=== PATIENT | female | born 1930 | race African-American/Black ===

== ENCOUNTER 2017-10-05 19:20 | Inpatient (IN) | payer MEDICARE, OTHER ==
[~2017-10-05] VITALS: Ht 157.5 cm; Wt 50.3 kg
[~2017-10-05 19:20] MED LIST: CARVEDILOL3.125 MG PO; CLOPIDOGREL75 MG PO; COQ-10100 MG PO; FERROUS SULFAT325 MG; FOLIC ACID1 MG PO; LISINOPRIL10 MG PO; LYRICA50 MG PO; MECLIZINE HCL25 MG PO; MINOCYCLINE HCL50 MG PO; PANTOPRAZOLE SO40 MG PO; PEPCID AC20 MG PO; SIMVASTATIN20 MG PO; SUCRALFATE1 GM PO
[2017-10-05] MEDS ORDERED: PANTOPRAZOLE 40 MG 10ML VIAL IV STA (19:33)
[2017-10-05] MEDS ORDERED: ONDANSETRON HCL INJ 2 MG/ML VIAL IV STA (19:33)
[2017-10-05] MEDS ORDERED: DIATRIZOATE MEGL/DIATRIZOA SOD 30 ML BTL PO ONE (19:50)
[2017-10-05 20:17] LABS: BASOPHILS % 0.3 % (0.0-1.0); HEMOGLOBIN 11.2 g/dL (12.0-16.0); LYMPHOCYTES % 26.6 % (18.0-39.1); MEAN CORPUSCULAR HEMOGLOBIN 24.1 pg (28-32); MEAN CORPUSCULAR HGB CONC 32.9 g/dL (31-35); MEAN CORPUSCULAR VOLUME 73.1 fL (81-99); MONOCYTES # (AUTO) 0.4 (0.2-0.8); MONOCYTES % 10.6 % (4.4-11.3); NEUTROPHILS # (AUTO) 2.3 (2.1-6.9); NEUTROPHILS % 62.2 % (38.7-80.0); PLATELET COUNT 137 x10e3/uL (140-360); RED BLOOD COUNT 4.65 x10e6/uL (3.6-5.1); RED CELL DISTRIBUTION WIDTH 15.4 % (11.7-14.4)
[2017-10-05 20:38] LABS: ALBUMIN 3.3 g/dL (3.5-5.0); ALBUMIN/GLOBULIN RATIO 0.8 (0.8-2.0); ANION GAP 12.6 mmol/L (8-16); CALCIUM 8.3 mg/dL (8.4-10.2); CREATININE, SERUM 1.08 mg/dL (0.57-1.11); POTASSIUM 3.6 mmol/L (3.5-5.1)
[2017-10-05 20:45] LABS: CREATINE KINASE MB 0.8 ng/mL (0.00-5.00); TROPONIN I 0.067 ng/mL (0-0.300)
--- NOTE | 2017-10-05 21:45 | Diagnostic Imaging Report ---
EXAM: CT ABDOMEN AND PELVIS with IV CONTRAST DATE: 10/05/2017 7:33 PM Time stamp on Exam: 2111 hours INDICATION: Abdominal pain, loss of appetite COMPARISON: None TECHNIQUE: The abdomen and pelvis were scanned using a multidetector helical scanner. Coronal and sagittal reformations were obtained. Routine protocol performed. IV Contrast: 100 cc Isovue 37 Oral Contrast: Gastrografin CTDIvol has been reviewed. It is below the limits set by the Radiation Protocol Committee (RPC). FINDINGS: LOWER THORAX: No consolidations LIVER: No masses BILIARY: The gallbladder is contracted. No ductal dilation. SPLEEN: No masses PANCREAS: No masses ADRENALS: No nodules KIDNEYS: Symmetric perfusion. No enhancing masses. No hydronephrosis. GI TRACT: No distention, wall thickening or evidence of obstruction. Normal appendix. Liquid filled colon. Scattered colonic diverticula. VESSELS: No acute finding PERITONEUM/RETROPERITONEUM: No free air or fluid LYMPH NODES: No lymphadenopathy REPRODUCTIVE ORGANS: Unremarkable BLADDER: Unremarkable SOFT TISSUES: Unremarkable BONES: No suspicious bone lesions. IMPRESSION: Liquid filled colon indicating diarrhea. No bowel obstruction or diverticulitis. Normal appendix. Signed by: Dr. Sofia Ivan M.D. on 10/05/2017 9:41 PM
[2017-10-05] MEDS ORDERED: SODIUM CHLORIDE 0.9% 50ML 50 ML ONE (22:24)
[2017-10-05] MEDS ORDERED: IOPAMIDOL 370 MG/ML 200 ML INFUS..BTL INJ ONE (22:24)
[2017-10-05 23:55] LABS: BILIRUBIN,URINE NEGATIVE (NEGATIVE); KETONES,URINE NEGATIVE (NEGATIVE); LEUKOCYTE ESTERASE ,URINE TRACE (NEGATIVE); NITRITE,URINE NEGATIVE (NEGATIVE); PROTEIN,URINE DIPSTICK NEGATIVE (NEGATIVE); URINE UROBILINOGEN 0.2 mg/dL (0.2 - 1)
[2017-10-05 23:59] LABS: CLARITY,URINE SL CLOUDY (CLEAR); COLOR,URINE YELLOW (YELLOW)
[2017-10-06 00:07] LABS: BACTERIA,URINE MANY /HPF; EPITHELIAL CELLS,URINE RARE /LPF
[2017-10-06] MEDS ORDERED: ONDANSETRON HCL INJ 2 MG/ML VIAL IV PRN (00:30)
[2017-10-06] MEDS ORDERED: CEFTRIAXONE SOD 1 GM VIAL IV SCH (00:30)
[2017-10-06] MEDS ORDERED: DEXTROSE 50% SYRINGE 50 ML IV PRN (00:30)
[2017-10-06] MEDS ORDERED: CEFTRIAXONE SOD 1 GM/NS 50 ML 50 ML IV SCH (01:00)
[2017-10-06] MEDS: SODIUM CHLORIDE 0.9% 1000ML 1,000 ML IV SCH ×2 (01:53→21:29)
[2017-10-06] MEDS ORDERED: CEFTRIAXONE SOD 1 GM VIAL ONE (02:07)
[2017-10-06] MEDS ORDERED: LASIX20 MG PO (04:15)
[2017-10-06] MEDS ORDERED: ULTRAM50 MG PO (04:15)
[2017-10-06] MEDS ORDERED: PANTOPRAZOLE SO40 MG PO (04:15)
[2017-10-06] MEDS ORDERED: COLACE100 MG PO (04:15)
[2017-10-06] MEDS: INSULIN REGULAR, HUMAN 100 UNIT/1 ML 3ML VIAL SQ SCH ×4 (09:08→21:00)
[2017-10-06 09:18] VITALS: BP 111/62
[2017-10-06] MEDS ORDERED: FAMOTIDINE 20 MG TAB PO PRN (10:15)
[2017-10-06] MEDS ORDERED: ALBUTEROL SULFATE HFA 8GM INHALATION AEROSOL INH PRN (10:15)
--- NOTE | 2017-10-06 10:53 | History and Physical ---
She is an 87-year-old female patient of mine that presented to the emergency room with the complaint of severe weakness. HISTORY OF PRESENT ILLNESS: Ms. Shelly Mullins is an 87-year-old female patient with a previous history of ischemic cardiomyopathy, CHF, CAD, AICD placement, gastritis, diabetes mellitus, borderline hypertension, hyperlipidemia, gastritis, and anemia. Presented to the emergency room. Wednesday the patient was cleaning her grandson's room, and after that the patient started having severe weakness, abdominal upset, diarrhea. The patient started having coughing and feeling profoundly weak, and having a decreased appetite. Patient denies any fever. Patient had not checked her temperature. Patient was very weak. Patient's daughter had found the patient was about to fall and trying to hold on to the sink. Patient complains of weakness. REVIEW OF SYSTEMS: As per history of present illness. PAST MEDICAL HISTORY: Hypertension, diabetes mellitus, ischemic cardiomyopathy, CHF, COPD, hyperlipidemia, gastritis, and anemia. PAST SURGICAL HISTORY: Patient has a pacemaker, AICD placed, and angioplasty. ALLERGIES: PENICILLIN, ASPIRIN AND REGLAN. SOCIAL HISTORY: Denies smoking. Denies using alcohol. FAMILY HISTORY: Hypertension, diabetes mellitus, coronary artery disease. PHYSICAL EXAMINATION GENERAL: She is an elderly female patient lying in bed not in any acute distress. Looks tired. VITALS: Temperature 99, pulse rate 60, blood pressure 110/70, respirations 20. Temperature in arrival in the ER was 99.5. HEENT: Normocephalic and atraumatic. No JVD. LUNGS: Bilateral equal fair air entry. Bilateral rhonchi present. HEART: S1 and S2 regular. Systolic murmur present. ABDOMEN: Soft. Bowel sounds are present. NEURO: No focal neurological deficit. ADMITTING IMPRESSION/DIAGNOSES 1. Acute exacerbation of chronic obstructive pulmonary disease. 2. Bronchitis. 3. Urinary tract infection. 4. Gastritis. 5. Abdominal pain. 6. Profound weakness. 7. Congestive heart failure. 8. Coronary artery disease. 9. Chronic obstructive pulmonary disease. 10. Hypertension. 11. Diabetes mellitus. The patient will be admitted with the above diagnoses. Will treat the patient with IV antibiotics. Give her neb treatments. Will obtain chest x-ray. Give the patient IV antibiotics. Job#: [id number] RI
[2017-10-06] MEDS: ALBUTEROL/IPRATROPIUM 3 ML NEB NEB PRN ×2 (11:52→20:30)
[2017-10-06 12:21] VITALS: BP 126/70
[2017-10-06 12:25] LABS: CREATINE KINASE MB 1.4 ng/mL (0.00-5.00); TROPONIN I 0.059 ng/mL (0-0.300)
[2017-10-06] MEDS: CLOPIDOGREL BISULFATE 75 MG TAB PO SCH (13:10)
[2017-10-06] MEDS: TRAMADOL HCL 50 MG TAB PO SCH ×2 (13:10→17:04)
[2017-10-06 14:50] VITALS: BP 138/70
[2017-10-06 16:16] VITALS: BP 138/70
[2017-10-06] MEDS: PREGABALIN 50 MG CAP PO SCH (17:00)
[2017-10-06] MEDS: SUCRALFATE 1 GM TAB PO SCH (17:03)
[2017-10-06] MEDS: CARVEDILOL 3.125 MG TAB PO SCH (17:03)
[2017-10-06 18:49] LABS: CREATINE KINASE MB 1.8 ng/mL (0.00-5.00); TROPONIN I 0.051 ng/mL (0-0.300)
[2017-10-06 19:52] VITALS: BP 121/72
[2017-10-06] MEDS ORDERED: SIMVASTATIN 20 MG TAB PO SCH (21:00)
[2017-10-06] MEDS ORDERED: SIMVASTATIN 40 MG TAB PO SCH (21:00)
[2017-10-07] VITALS (7 sets, daily range): BP systolic 106–142; BP diastolic 61–76
[2017-10-07] MEDS: CEFTRIAXONE SOD 1 GM VIAL IV SCH (00:29)
[2017-10-07 06:09] LABS: BASOPHILS % 0.5 % (0.0-1.0); HEMOGLOBIN 9.5 g/dL (12.0-16.0); LYMPHOCYTES # (AUTO) 1.1 (1.0-3.2); LYMPHOCYTES % 51.2 % (18.0-39.1); MEAN CORPUSCULAR HEMOGLOBIN 23.9 pg (28-32); MEAN CORPUSCULAR HGB CONC 32.8 g/dL (31-35); MONOCYTES # (AUTO) 0.2 (0.2-0.8); MONOCYTES % 11.2 % (4.4-11.3); NEUTROPHILS # (AUTO) 0.7 (2.1-6.9); NEUTROPHILS % 35.6 % (38.7-80.0); PLATELET COUNT 109 x10e3/uL (140-360); RED BLOOD COUNT 3.97 x10e6/uL (3.6-5.1); RED CELL DISTRIBUTION WIDTH 15.1 % (11.7-14.4)
[2017-10-07 06:32] LABS: ALANINE AMINOTRANSFERASE 17 IU/L (0-55); ALBUMIN 2.8 g/dL (3.5-5.0); ALBUMIN/GLOBULIN RATIO 0.9 (0.8-2.0); ALKALINE PHOSPHATASE 52 IU/L (40-150); ANION GAP 10.5 mmol/L (8-16); BLOOD UREA NITROGEN 8 mg/dL (7-26); BUN/CREATININE RATIO 10 (6-25); CALCIUM 7.8 mg/dL (8.4-10.2); CARBON DIOXIDE 24 mmol/L (22-29); CHLORIDE 107 mmol/L (98-107); CREATININE, SERUM 0.78 mg/dL (0.57-1.11); EST GLOMERULAR FILTRATION RATE > 60 ML/MIN (60-); GLUCOSE 80 mg/dL (74-118); POTASSIUM 3.5 mmol/L (3.5-5.1); SODIUM 138 mmol/L (136-145)
[2017-10-07] MEDS ORDERED: ACETAMINOPHEN 325 MG TAB PO PRN (06:45)
[2017-10-07] MEDS: INSULIN REGULAR, HUMAN 100 UNIT/1 ML 3ML VIAL SQ SCH ×4 (07:30→21:00)
[2017-10-07] MEDS: ALBUTEROL/IPRATROPIUM 3 ML NEB NEB PRN ×2 (07:58→20:50)
[2017-10-07 08:16] LABS: LYMPHOCYTES % (MANUAL) 52 % (19-48); MONOCYTES % (MANUAL) 13 % (3.4-9.0); NEUTROPHILS % (MANUAL) 35 % (40-74)
[2017-10-07 08:17] LABS: ANISOCYTOSIS MODERATE; HYPOCHROMASIA SLIGHT; PLATELET ESTIMATE SLIGHTLY DECREASED; PLATELET MORPHOLOGY COMMENT FEW LARGE; POIKILOCYTOSIS MODERATE; RBC MORPHOLOGY COMMENT ABNORMAL
[2017-10-07] MEDS: TRAMADOL HCL 50 MG TAB PO SCH ×3 (09:19→16:29)
[2017-10-07] MEDS: DOCUSATE SODIUM 100 MG CAP PO SCH (09:19)
[2017-10-07] MEDS: SUCRALFATE 1 GM TAB PO SCH ×2 (09:19→16:28)
[2017-10-07] MEDS: FOLIC ACID 1 MG TAB PO SCH (09:20)
[2017-10-07] MEDS: CLOPIDOGREL BISULFATE 75 MG TAB PO SCH (09:20)
[2017-10-07] MEDS: CARVEDILOL 3.125 MG TAB PO SCH ×2 (09:20→16:29)
[2017-10-07] MEDS: FUROSEMIDE 20 MG TAB PO SCH (09:20)
[2017-10-07] MEDS: FERROUS SULFATE 325 MG TAB PO SCH (09:20)
[2017-10-07] MEDS: PREGABALIN 50 MG CAP PO SCH ×2 (09:20→16:29)
[2017-10-07] MEDS: LISINOPRIL 10 MG TAB PO SCH (09:21)
[2017-10-07] MEDS: PANTOPRAZOLE SOD 40 MG TABEC PO SCH (09:21)
--- NOTE | 2017-10-07 11:23 | Diagnostic Imaging Report ---
PROCEDURE:CHEST 2 VIEWS TECHNIQUE:PA and lateral chest INDICATION:Cough; flu COMPARISON:[facility], , CHEST 2 VIEWS, 06/14/2015, 8:55. FINDINGS: Lungs are clear and symmetrically inflated. No pleural effusions. Mild cardiomegaly. Single-lead AICD over left hemithorax; lead intact. Normal central vasculature. Intact skeleton. CONCLUSION: No acute abnormality. Progressive cardiomegaly relative to May 2015. Dictated by: Teddy Canada M.D. on 10/07/2017 at 11:32 Electronically approved by: Teddy Canada M.D. on 10/07/2017 at 11:32
[2017-10-07] MEDS: OSELTAMIVIR PHOSPHATE 75 MG CAP PO SCH (16:29)
[2017-10-07] MEDS: SODIUM CHLORIDE 0.9% 1000ML 1,000 ML IV SCH (19:18)
[2017-10-08 00:35] VITALS: BP 105/69
[2017-10-08] MEDS: CEFTRIAXONE SOD 1 GM VIAL IV SCH (01:10)
[2017-10-08 04:00] VITALS: BP 122/73
[2017-10-08] MEDS: INSULIN REGULAR, HUMAN 100 UNIT/1 ML 3ML VIAL SQ SCH ×4 (07:30→21:00)
[2017-10-08] MEDS: TRAMADOL HCL 50 MG TAB PO SCH ×3 (08:00→17:00)
[2017-10-08] MEDS: DOCUSATE SODIUM 100 MG CAP PO SCH (09:00)
[2017-10-08] MEDS: SUCRALFATE 1 GM TAB PO SCH ×2 (09:42→17:20)
[2017-10-08] MEDS: CARVEDILOL 3.125 MG TAB PO SCH ×2 (09:43→17:21)
[2017-10-08] MEDS: FERROUS SULFATE 325 MG TAB PO SCH (09:44)
[2017-10-08] MEDS: FUROSEMIDE 20 MG TAB PO SCH (09:44)
[2017-10-08] MEDS: FOLIC ACID 1 MG TAB PO SCH (09:44)
[2017-10-08] MEDS: PREGABALIN 50 MG CAP PO SCH ×2 (09:44→17:21)
[2017-10-08] MEDS: CLOPIDOGREL BISULFATE 75 MG TAB PO SCH (09:45)
[2017-10-08] MEDS: OSELTAMIVIR PHOSPHATE 75 MG CAP PO SCH ×2 (09:45→17:21)
[2017-10-08] MEDS: LISINOPRIL 10 MG TAB PO SCH (09:45)
[2017-10-08] MEDS: PANTOPRAZOLE SOD 40 MG TABEC PO SCH (09:45)
[2017-10-08 12:00] VITALS: BP 124/65
[2017-10-08] MEDS: ALBUTEROL/IPRATROPIUM 3 ML NEB NEB PRN ×2 (15:34→20:32)
[2017-10-08] MEDS: SODIUM CHLORIDE 0.9% 1000ML 1,000 ML IV SCH (15:44)
[2017-10-08 16:00] VITALS: BP 124/58
--- NOTE | 2017-10-08 18:57 | Consultation ---
DATE OF CONSULTATION: October 08, 2017 REFERRING PHYSICIAN: Dr. Clifford Hollingsworth. REASON FOR CONSULTATION: Anemia. HISTORY OF PRESENT ILLNESS: Ms. Mullins is a pleasant, 87-year-old woman who came in with the flu. She tested positive for influenza type A. She was having nausea, diarrhea and indigestion. She said she felt generally extremely weak, had a low appetite and felt very ill. . She was brought in and, as mentioned, found to be influenza positive. CAT scan was positive for liquid stool in the colon concerning for diarrheal state. The diarrhea has now resolved. She denies any abdominal pain, nausea, vomiting, dysphagia, odynophagia or overt bleeding. She reports she has a history of chronic anemia. She says often times her white count is also low. It seems like her baseline hemoglobin is more like 11-12 from what is in the computer with the most recent ones being in the 11 range. It has dropped down to 9.5. Occult blood was ordered, but pending. She had a low MCV at 73 which is also being evaluated with iron studies which have been ordered but not drawn. She is notable for platelet count being low as well, concerning for overall pancytopenia. She reports that she may have some sort of blood problem given her history of chronic anemia and leukopenia. Imaging is not concerning for cirrhosis. She reports she had an EGD and colonoscopy within the past 5 years. She reports a history of polyps. PAST MEDICAL HISTORY: 1. Ischemic cardiomyopathy. 2. CHF. 3. CAD. 4. AICD. 5. Gastritis. 6. Diabetes. 7. Hypertension. 8. Dyslipidemia. 9. Chronic anemia. 10. COPD. MEDICATION ALLERGIES: REVIEWED, PLEASE SEE MAR AND MEDICATION RECONCILIATION FORM. SOCIAL HISTORY: No tobacco, no alcohol no illicit substances. FAMILY HISTORY: Reviewed and positive for anemia, hypertension, diabetes and coronary artery disease. REVIEW OF SYSTEMS: Ten systems reviewed positive for that mentioned in history of present illness, otherwise unremarkable. PHYSICAL EXAMINATION: GENERAL: She is thin, elderly and in no acute distress. HEENT: Pupils are equal, round and reactive to light. NECK: Supple. LUNGS: Clear. CARDIOVASCULAR: S1 and S2. ABDOMEN: Soft, nontender and nondistended. Normal bowel sounds. EXTREMITIES: No clubbing, cyanosis or edema. PSYCHIATRIC: Calm and cooperative. NEUROLOGIC: Nonfocal. HEME/ONC: No bruising or adenopathy. Electronic health records reviewed for laboratory and radiologic studies as well as history. ASSESSMENT: 1. Nausea, anorexia, diarrhea, likely related to acute influenza. 2. Multiple medical problems. 1. Pancytopenia with hemoglobin being microcytic and below her baseline: She has had no overt bleeding. RECOMMENDATIONS: For now I would monitor hemoglobin and hematocrit and follow up her iron studies and replace as needed. Given that it is pancytopenia, hematology consult could be considered. I would have her follow up as an outpatient once this is resolved for repeat endoscopy, both EGD and colonoscopy, particularly if she is found to be iron deficient. Thank you very much for asking me to see Ms. Mullins. Any questions or concerns, please do not hesitate to contact us. Will follow with you. Job#: [id number]
[2017-10-08 20:00] VITALS: BP 120/66
[2017-10-09] VITALS: BP 126/59
[2017-10-09] MEDS: CEFTRIAXONE SOD 1 GM VIAL IV SCH (01:00)
[2017-10-09 04:00] VITALS: BP 139/65
[2017-10-09 06:43] LABS: BASOPHILS % 0.5 % (0.0-1.0); EOSINOPHILS % 1.4 % (0.0-6.0); HEMATOCRIT 28.1 % (34.2-44.1); HEMOGLOBIN 9.1 g/dL (12.0-16.0); LYMPHOCYTES # (AUTO) 1.8 (1.0-3.2); LYMPHOCYTES % 80.2 % (18.0-39.1); MEAN CORPUSCULAR HEMOGLOBIN 23.8 pg (28-32); MEAN CORPUSCULAR HGB CONC 32.4 g/dL (31-35); MEAN CORPUSCULAR VOLUME 73.4 fL (81-99); MONOCYTES # (AUTO) 0.2 (0.2-0.8); MONOCYTES % 9.9 % (4.4-11.3); NEUTROPHILS # (AUTO) 0.2 (2.1-6.9); NEUTROPHILS % 7.5 % (38.7-80.0); PLATELET COUNT 86 x10e3/uL (140-360); RED BLOOD COUNT 3.83 x10e6/uL (3.6-5.1); RED CELL DISTRIBUTION WIDTH 14.9 % (11.7-14.4); RETICULOCYTE % 0.5 % (0.8-2.2)
[2017-10-09] MEDS: ALBUTEROL/IPRATROPIUM 3 ML NEB NEB PRN ×2 (06:50→15:32)
[2017-10-09 07:05] LABS: % IRON SATURATION 20 % (15-50); ALANINE AMINOTRANSFERASE 16 IU/L (0-55); ALBUMIN 2.8 g/dL (3.5-5.0); ALBUMIN/GLOBULIN RATIO 0.8 (0.8-2.0); ALKALINE PHOSPHATASE 50 IU/L (40-150); ANION GAP 10.3 mmol/L (8-16); BLOOD UREA NITROGEN 8 mg/dL (7-26); BUN/CREATININE RATIO 11 (6-25); CALCIUM 8.1 mg/dL (8.4-10.2); CARBON DIOXIDE 27 mmol/L (22-29); CHLORIDE 104 mmol/L (98-107); CREATININE, SERUM 0.74 mg/dL (0.57-1.11); EST GLOMERULAR FILTRATION RATE > 60 ML/MIN (60-); GLUCOSE 79 mg/dL (74-118); IRON 39 ug/dL (50-170); POTASSIUM 3.3 mmol/L (3.5-5.1); SODIUM 138 mmol/L (136-145); TOTAL IRON BINDING CAPACITY 195 ug/dL (261-478); TRANSFERRIN 139 mg/dL (180-382)
[2017-10-09] MEDS: INSULIN REGULAR, HUMAN 100 UNIT/1 ML 3ML VIAL SQ SCH ×4 (07:30→21:00)
[2017-10-09 08:00] VITALS: BP 129/68
[2017-10-09] MEDS: DOCUSATE SODIUM 100 MG CAP PO SCH (09:00)
[2017-10-09] MEDS: LISINOPRIL 10 MG TAB PO SCH (09:00)
[2017-10-09] MEDS: SUCRALFATE 1 GM TAB PO SCH ×2 (09:18→17:00)
[2017-10-09] MEDS: CARVEDILOL 3.125 MG TAB PO SCH ×2 (09:18→17:00)
[2017-10-09] MEDS: TRAMADOL HCL 50 MG TAB PO SCH ×3 (09:18→17:00)
[2017-10-09] MEDS: OSELTAMIVIR PHOSPHATE 75 MG CAP PO SCH ×2 (09:19→17:00)
[2017-10-09] MEDS: FUROSEMIDE 20 MG TAB PO SCH (09:19)
[2017-10-09] MEDS: CLOPIDOGREL BISULFATE 75 MG TAB PO SCH (09:19)
[2017-10-09] MEDS: PREGABALIN 50 MG CAP PO SCH ×2 (09:19→17:00)
[2017-10-09] MEDS: FOLIC ACID 1 MG TAB PO SCH (09:19)
[2017-10-09] MEDS: FERROUS SULFATE 325 MG TAB PO SCH (09:19)
[2017-10-09] MEDS: PANTOPRAZOLE SOD 40 MG TABEC PO SCH (09:19)
[2017-10-09 10:31] LABS: ANISOCYTOSIS SLIGHT; EOSINOPHILS % (MANUAL) 1 % (0-7); LYMPHOCYTES % (MANUAL) 78 % (19-48); MICROCYTOSIS SLIGHT; MONOCYTES % (MANUAL) 4 % (3.4-9.0); NEUTROPHILS % (MANUAL) 12 % (40-74); PLATELET ESTIMATE SLIGHTLY DECREASED; PLATELET MORPHOLOGY COMMENT FEW EDTA CLUMPING; POIKILOCYTOSIS SLIGHT; RBC MORPHOLOGY COMMENT ABNORMAL
[2017-10-09 12:00] VITALS: BP 121/73
[2017-10-09] MEDS ORDERED: POTASSIUM CHLORIDE 20 MEQ TAB CR PO ONE (15:00)
[2017-10-09 16:00] VITALS: BP 138/77
[2017-10-09] MEDS ORDERED: FILGRASTIM 300 MCG/ML VIAL SC ONE (19:30)
[2017-10-09 20:00] VITALS: BP 151/97
[2017-10-10] VITALS: BP 155/77
[2017-10-10] MEDS: NYSTATIN SUSPENSION 5 ML UDC PO SCH ×3 (00:25→12:00)
[2017-10-10] MEDS: CEFTRIAXONE SOD 1 GM VIAL IV SCH (00:25)
[2017-10-10 04:00] VITALS: BP 157/78
[2017-10-10] MEDS: INSULIN REGULAR, HUMAN 100 UNIT/1 ML 3ML VIAL SQ SCH ×3 (07:30→16:30)
[2017-10-10 08:00] VITALS: BP 154/83
[2017-10-10] MEDS: TRAMADOL HCL 50 MG TAB PO SCH ×3 (08:00→17:00)
[2017-10-10] MEDS: DOCUSATE SODIUM 100 MG CAP PO SCH (09:00)
[2017-10-10] MEDS: PANTOPRAZOLE SOD 40 MG TABEC PO SCH (09:00)
[2017-10-10] MEDS: FUROSEMIDE 20 MG TAB PO SCH (09:00)
[2017-10-10] MEDS: SUCRALFATE 1 GM TAB PO SCH ×2 (09:41→17:00)
[2017-10-10] MEDS: LISINOPRIL 10 MG TAB PO SCH (09:42)
[2017-10-10] MEDS: CARVEDILOL 3.125 MG TAB PO SCH ×2 (09:42→17:00)
[2017-10-10] MEDS: OSELTAMIVIR PHOSPHATE 75 MG CAP PO SCH ×2 (09:43→17:00)
[2017-10-10 10:41] LABS: HIV 1&2 AB SCREEN NON-REACTIVE (NONREACTIVE)
[2017-10-10 12:00] VITALS: BP 140/76
[2017-10-10] MEDS: FOLIC ACID 1 MG TAB PO SCH (12:42)
[2017-10-10] MEDS: PREGABALIN 50 MG CAP PO SCH ×2 (12:42→17:00)
[2017-10-10] MEDS: FERROUS SULFATE 325 MG TAB PO SCH (12:42)
[2017-10-10] MEDS: CLOPIDOGREL BISULFATE 75 MG TAB PO SCH (12:42)
[2017-10-10 13:42] LABS: BASOPHILS % 0.1 % (0.0-1.0); EOSINOPHILS # (AUTO) 0.1 (0.0-0.4); EOSINOPHILS % 0.6 % (0.0-6.0); HEMATOCRIT 33.1 % (34.2-44.1); HEMOGLOBIN 10.9 g/dL (12.0-16.0); LYMPHOCYTES # (AUTO) 1.8 (1.0-3.2); LYMPHOCYTES % 22.7 % (18.0-39.1); MEAN CORPUSCULAR HGB CONC 32.9 g/dL (31-35); MEAN CORPUSCULAR VOLUME 72.9 fL (81-99); MONOCYTES # (AUTO) 0.5 (0.2-0.8); MONOCYTES % 6.2 % (4.4-11.3); NEUTROPHILS # (AUTO) 5.4 (2.1-6.9); NEUTROPHILS % 69.4 % (38.7-80.0); PLATELET COUNT 129 x10e3/uL (140-360); RED BLOOD COUNT 4.54 x10e6/uL (3.6-5.1)
[2017-10-10 16:00] VITALS: BP 136/68
== END 2017-10-10 17:00 | disposition home or self-care (01) | DRG 194 ==
LOC: ER 19:20 → ERHOLD 10-06 00:42 → MED/SURG2 10-06 14:36
PROVIDERS: ADMIT Internal Medicine; ATTEND Internal Medicine
DX: J10.1 Influenza due to other identified influenza virus with other respiratory manifestations (principal); J44.0 Chronic obstructive pulmonary disease with (acute) lower respiratory infection; D61.818 Other pancytopenia; I25.5 Ischemic cardiomyopathy; I11.0 Hypertensive heart disease with heart failure; I50.9 Heart failure, unspecified; E86.0 Dehydration; I25.10 Atherosclerotic heart disease of native coronary artery without angina pectoris; D64.9 Anemia, unspecified; E11.9 Type 2 diabetes mellitus without complications; N39.0 Urinary tract infection, site not specified; J44.1 Chronic obstructive pulmonary disease with (acute) exacerbation; J20.9 Acute bronchitis, unspecified; Z95.810 Presence of automatic (implantable) cardiac defibrillator; K29.70 Gastritis, unspecified, without bleeding; Z95.5 Presence of coronary angioplasty implant and graft
CPT/HCPCS: 36415; 71020; 74177; 80053; 81001; 82150; 82550; 82553; 82607; 82728; 82746; 82948; 83540; 83605; 83690; 84466; 84484; 85025; 85045; 86039; 86431; 86704; 86706; 86803; 87086; 87340; 87390; 87400; 88184; 93005; 96374; 96376; 99284; G0433; G0435; J0696; J1442; J2405; J7030; Q9967

== ENCOUNTER 2018-03-03 11:52 | Observation (INO) | payer MEDICARE, OTHER ==
[~2018-03-03] VITALS: Ht 160 cm; Wt 56.7 kg
[~2018-03-03 11:52] MED LIST changes: +COLACE100 MG PO; +LASIX20 MG PO; +ULTRAM50 MG PO
--- OUTSIDE RECORDS SUMMARY | 2018-03-03 11:54 | XMS REPORT ---
Author [facility] Address Unknown Phone Unavailable Care Team Providers Care Ammunition Supervisor Name Role Phone YOLA MARSHALL Unavailable Unavailable Problems This patient has no known problems. Allergies, Adverse Reactions, Alerts This patient has no known allergies or adverse reactions. Medications This patient has no known medications. Results Test Description Test Time Test Comments Text Results Atomic Results Result Comments CHEST 2 VIEWS [place] [address] Patient Name: RIGO CYR MR #: [id number] : 1930 Age/Sex: 87/F Req # : [id number] Adm Physician: YOLA MARSHALL MD Ordered by: YOLA MARSHALL MD Report #: [id number] Location: MED/SURG2 Room/Bed: [facility] _ Procedure: [id number] DX/CHEST 2 VIEWS Exam Date: 10/07/17 Exam Time: 1030 REPORT STATUS: Signed PROCEDURE: CHEST 2 VIEWS TECHNIQUE: PA and lateral chest INDICATION: Cough; flu COMPARISON: [facility], DX, CHEST 2 VIEWS, 06/14/2015, 8:55. FINDINGS: Lungs are clear and symmetrically inflated. No pleural effusions. Mild cardiomegaly. Single-lead AICD over left hemithorax; lead intact. Normal central vasculature. Intact skeleton. CONCLUSION: No acute abnormality. Progressive cardiomegaly relative to May 2015. Dictated by: Mahogany Canada M.D. on 10/07/2017 at 11:32 Electronically approved by: Mahogany Canada M.D. on 10/07/2017 at 11:32 Dictated By: MAHOGANY CANADA MD 31 Transcribed By: SHANI on 10/07/17 113 COPY TO: YOLA MARSHALL MD CT ABDOMEN/PELVIS W [place] [address] Patient Name: RIGO CYR MR #: [id number] : 1930 Age/Sex: 87/F Req #: [id number] Adm Physician: YOLA MARSHALL MD Ordered by: ABDULAZIZ MOORE MD Report #: [id number] [facility] Room/Bed: [place] [address] Procedure: [id number] CT/CT ABDOMEN/PELVIS W Exam Date: 10/05/17 Exam Time: 2100 REPORT STATUS: Signed EXAM: CT ABDOMEN AND PELVIS with IV CONTRAST DATE: 2016 7:33 PM Time stamp on Exam: 2112 hours INDICATION: Abdominal pain, loss of appetite COMPARISON: None TECHNIQUE: The abdomen and pelvis were scanned using a multidetector helical scanner. Coronal and sagittal reformations were obtained. Routine protocol performed. IV Contrast: 100 cc Isovue 37 Oral Contrast: Gastrografin CTDIvol has been reviewed. It is below the limits set by the Radiation Protocol Committee (RPC). FINDINGS : LOWER THORAX: No consolidations LIVER: No masses BILIARY: The gallbladder is contracted. No ductal dilation. SPLEEN: No masses PANCREAS: No masses ADRENALS: No nodules KIDNEYS: Symmetric perfusion. No enhancing masses. No hydronephrosis. GI TRACT: No distention, wall thickening or evidence of obstruction. Normal appendix. Liquid filled colon. Scattered colonic diverticula. VESSELS: No acute finding PERITONEUM/ RETROPERITONEUM: No free air or fluid LYMPH NODES: No lymphadenopathy REPRODUCTIVE ORGANS: Unremarkable BLADDER: Unremarkable SOFT TISSUES: Unremarkable BONES: No suspicious bone lesions. IMPRESSION: Liquid filled colon indicating diarrhea. No bowel obstruction or diverticulitis. Normal appendix. Signed by: Dr. Sherri Ivan M.D. on 10/05/2017 9:41 PM Dictated By: SHERRI IVAN MD 40 Transcribed By: JEFF on 10/05/172140 COPY TO: ABDULAZIZ MOORE MD
[2018-03-03 12:20] LABS: BASOPHILS % 0.7 % (0.0-1.0); EOSINOPHILS # (AUTO) 0.1 (0.0-0.4); EOSINOPHILS % 2.7 % (0.0-6.0); HEMATOCRIT 32.4 % (34.2-44.1); HEMOGLOBIN 10.6 g/dL (12.0-16.0); LYMPHOCYTES % 34.9 % (18.0-39.1); MEAN CORPUSCULAR HEMOGLOBIN 24.1 pg (28-32); MEAN CORPUSCULAR HGB CONC 32.7 g/dL (31-35); MEAN CORPUSCULAR VOLUME 73.8 fL (81-99); MONOCYTES # (AUTO) 0.3 (0.2-0.8); MONOCYTES % 9.7 % (4.4-11.3); NEUTROPHILS # (AUTO) 1.6 (2.1-6.9); PLATELET COUNT 162 x10e3/uL (140-360); RED BLOOD COUNT 4.39 x10e6/uL (3.6-5.1); RED CELL DISTRIBUTION WIDTH 15.9 % (11.7-14.4)
[2018-03-03] MEDS ORDERED: FAMOTIDINE 20 MG/2 ML VIAL IV STA (12:27)
[2018-03-03] MEDS ORDERED: SUCRALFATE 1 GM/10 ML SUSP NG ONE (12:30)
[2018-03-03] MEDS ORDERED: MAGNESIUM/ALUMINUM/SIMETHICONE 30 ML UDC PO ONE (12:30)
[2018-03-03 12:37] LABS: ALANINE AMINOTRANSFERASE 21 IU/L (0-55); ALBUMIN 3.6 g/dL (3.5-5.0); ALBUMIN/GLOBULIN RATIO 1.1 (0.8-2.0); ALKALINE PHOSPHATASE 88 IU/L (40-150); ANION GAP 10.4 mmol/L (8-16); BLOOD UREA NITROGEN 7 mg/dL (7-26); BUN/CREATININE RATIO 8 (6-25); CARBON DIOXIDE 26 mmol/L (22-29); CHLORIDE 109 mmol/L (98-107); CREATININE, SERUM 0.88 mg/dL (0.57-1.11); EST GLOMERULAR FILTRATION RATE > 60 ML/MIN (60-); GLUCOSE 97 mg/dL (74-118); LIPASE 21 U/L (8-78); POTASSIUM 3.4 mmol/L (3.5-5.1); SODIUM 142 mmol/L (136-145)
--- NOTE | 2018-03-03 13:07 | Diagnostic Imaging Report ---
PROCEDURE:X-RAY ABDOMEN, ACUTE SERIES COMPARISON:Chest radiographs from 12 1519 INDICATIONS:EPIGASTRIC PAIN FINDINGS: 2 views of the abdomen (AP supine and erect) and one PA view of the chest No dilated loops of bowel or abnormal air-fluid levels patterns. No free air underneath the diaphragm. No definite calcifications are seen overlying the urinary system. Five non-rib bearing lumbar type vertebral bodies identified. Moderate cardiomegaly. Left chest wall pacemaker/AICD with lead in the expected position. Bibasilar streaky opacities likely represent atelectasis. CONCLUSION: 1. Nonobstructive bowel gas pattern. No evidence of free intraperitoneal air. Dictated by: Agapito Tomas M.D. on 03/03/2018 at 13:09 Electronically approved by: Agapito Tomas M.D. on 03/03/2018 at 13:09
[2018-03-03] MEDS ORDERED: LABETALOL HCL 5 MG/ML 20ML VIAL IV ONE (13:15)
[2018-03-03] MEDS ORDERED: LABETALOL HCL 5 MG/ML 20ML VIAL IV STA (14:14)
[2018-03-03] MEDS ORDERED: ASPIRIN 81 MG CHEW TAB PO ONE (14:30)
[2018-03-03] MEDS ORDERED: SODIUM CHLORIDE FLUSH 10 ML SYR INJ PRN (14:30)
[2018-03-03] MEDS ORDERED: ONDANSETRON HCL INJ 2 MG/ML VIAL IV PRN (14:30)
[2018-03-03 14:57] LABS: CREATINE KINASE MB 1.2 ng/mL (0-5.0)
[2018-03-03] MEDS ORDERED: DEXTROSE 50% SYRINGE 50 ML IV PRN (15:15)
[2018-03-03] MEDS: ONDANSETRON HCL 4 MG ORAL DISINTEGRATING TAB PO PRN (15:58)
[2018-03-03] MEDS: INSULIN LISPRO 100 UNIT/1 ML 3ML VIAL SQ SCH ×2 (16:09→20:51)
[2018-03-03] MEDS: FAMOTIDINE 20 MG/2 ML VIAL IV SCH (16:10)
[2018-03-03] MEDS ORDERED: LOSARTAN POTASS25 MG PO (16:29)
[2018-03-03] MEDS ORDERED: PRESERVISION A1 EACH PO (16:29)
[2018-03-03] MEDS ORDERED: FUROSEMIDE INJ 10 MG/ML 2 ML VIAL IV ONE (17:30)
[2018-03-03] MEDS: CARVEDILOL 3.125 MG TAB PO SCH (17:36)
[2018-03-03] MEDS: LOSARTAN POTASSIUM 25 MG TAB PO SCH (17:37)
[2018-03-03] MEDS: SODIUM CHLORIDE 0.9% 1000ML 1,000 ML IV SCH (17:37)
[2018-03-03 17:56] VITALS: BP 172/90
[2018-03-03 18:28] VITALS: BP 172/90
[2018-03-03 20:00] VITALS: BP 159/70
[2018-03-03 20:50] LABS: CREATINE KINASE MB 1.5 ng/mL (0-5.0)
[2018-03-03] MEDS ORDERED: TRAMADOL HCL 50 MG TAB PO PRN (21:00)
[2018-03-03 22:01] VITALS: BP 159/70
[2018-03-04] VITALS: BP 149/77
[2018-03-04 04:00] VITALS: BP 164/82
[2018-03-04] MEDS: SODIUM CHLORIDE 0.9% 1000ML 1,000 ML IV SCH (05:26)
[2018-03-04 07:13] LABS: BASOPHILS % 0.3 % (0.0-1.0); EOSINOPHILS # (AUTO) 0.1 (0.0-0.4); EOSINOPHILS % 3.1 % (0.0-6.0); HEMATOCRIT 32.5 % (34.2-44.1); HEMOGLOBIN 10.6 g/dL (12.0-16.0); LYMPHOCYTES # (AUTO) 1.6 (1.0-3.2); LYMPHOCYTES % 55.8 % (18.0-39.1); MEAN CORPUSCULAR HEMOGLOBIN 23.9 pg (28-32); MEAN CORPUSCULAR HGB CONC 32.6 g/dL (31-35); MEAN CORPUSCULAR VOLUME 73.2 fL (81-99); MONOCYTES # (AUTO) 0.3 (0.2-0.8); MONOCYTES % 10.2 % (4.4-11.3); NEUTROPHILS # (AUTO) 0.9 (2.1-6.9); NEUTROPHILS % 30.6 % (38.7-80.0); PLATELET COUNT 161 x10e3/uL (140-360); RED BLOOD COUNT 4.44 x10e6/uL (3.6-5.1); RED CELL DISTRIBUTION WIDTH 15.9 % (11.7-14.4)
[2018-03-04] MEDS: SUCRALFATE 1 GM TAB PO SCH ×3 (07:30→18:09)
[2018-03-04] MEDS: INSULIN LISPRO 100 UNIT/1 ML 3ML VIAL SQ SCH ×4 (07:30→20:31)
[2018-03-04 07:57] LABS: CREATINE KINASE MB 1.4 ng/mL (0-5.0)
[2018-03-04] MEDS: CLOPIDOGREL BISULFATE 75 MG TAB PO SCH (07:57)
[2018-03-04] MEDS: ALBUTEROL SULF 0.083% NEB SOLN 3 ML NEB NEB PRN (07:59)
[2018-03-04] MEDS ORDERED: TRAMADOL HCL 50 MG TAB PO SCH (08:00)
[2018-03-04 08:03] VITALS: BP 110/72
[2018-03-04 08:26] LABS: ANISOCYTOSIS MODERATE; BAND NEUTROPHILS % (MANUAL) 7 %; BLAST CELLS % MANUAL 1; EOSINOPHILS % (MANUAL) 3 % (0-7); HYPOCHROMASIA SLIGHT; LYMPHOCYTES % (MANUAL) 60 % (19-48); MONOCYTES % (MANUAL) 10 % (3.4-9.0); NEUTROPHILS % (MANUAL) 18 % (40-74); NUCLEATED RED BLOOD CELLS 1; RBC MORPHOLOGY COMMENT ABNORMAL
[2018-03-04 08:27] LABS: PLATELET ESTIMATE ADEQUATE; PLATELET MORPHOLOGY COMMENT NORMAL; POIKILOCYTOSIS SLIGHT; TEAR DROP CELLS FEW
[2018-03-04] MEDS: FAMOTIDINE 20 MG/2 ML VIAL IV SCH ×2 (08:29→18:09)
[2018-03-04 08:41] LABS: ALANINE AMINOTRANSFERASE 18 IU/L (0-55); ALBUMIN 3.5 g/dL (3.5-5.0); ALBUMIN/GLOBULIN RATIO 1.1 (0.8-2.0); ALKALINE PHOSPHATASE 83 IU/L (40-150); ANION GAP 12.8 mmol/L (8-16); BLOOD UREA NITROGEN 7 mg/dL (7-26); BUN/CREATININE RATIO 8 (6-25); CALCIUM 9.1 mg/dL (8.4-10.2); CARBON DIOXIDE 28 mmol/L (22-29); CHLORIDE 106 mmol/L (98-107); EST GLOMERULAR FILTRATION RATE > 60 ML/MIN (60-); GLUCOSE 106 mg/dL (74-118); POTASSIUM 3.8 mmol/L (3.5-5.1); SODIUM 143 mmol/L (136-145)
[2018-03-04] MEDS ORDERED: LOSARTAN POTASSIUM 25 MG TAB PO SCH (09:00)
[2018-03-04] MEDS: PREGABALIN 50 MG CAP PO SCH ×2 (09:00→18:09)
[2018-03-04] MEDS: LOSARTAN POTASSIUM 25 MG TAB PO SCH ×2 (09:00→20:42)
[2018-03-04] MEDS: CARVEDILOL 3.125 MG TAB PO SCH ×2 (09:00→18:10)
[2018-03-04] MEDS ORDERED: PANTOPRAZOLE 40 MG 10ML VIAL IV SCH (09:00)
[2018-03-04] MEDS ORDERED: CARVEDILOL 3.125 MG TAB PO SCH (09:00)
[2018-03-04] MEDS: FOLIC ACID 1 MG TAB PO SCH (09:00)
[2018-03-04 09:05] VITALS: BP 110/72
--- NOTE | 2018-03-04 09:56 | History and Physical ---
HISTORY OF PRESENT ILLNESS: She is an 87-year-old female patient of mine who presented to the emergency room with the complaint of epigastric abdominal pain and not able to eat. The patient was having gastric area and upper abdominal pain. The patient said she was having wheezing and cough and chest pain, and having some leg swelling and difficulty with breathing. The patient has no appetite. REVIEW OF SYSTEMS: Shortness of breath, wheezing, abdominal pain, heartburn, nausea, no appetite and weakness and leg swelling. PAST MEDICAL HISTORY: The patient has a history of CHF, coronary artery disease, cardiomyopathy, hypertension, chronic bronchitis, and hyperlipidemia and GERD. MEDICATIONS: See from the list. ALLERGIES: PENICILLIN, ASPIRIN, METOCLOPRAMIDE. SOCIAL HISTORY: Denies smoking. Denies using alcohol. FAMILY HISTORY: Hypertension, coronary artery disease. PHYSICAL EXAMINATION GENERAL: An elderly female patient who is anxious and apprehensive. VITAL SIGNS: Temperature 98, pulse rate 88, respirations 20, blood pressure 170/90. HEENT: Normocephalic, atraumatic. NECK: No JVD, no lymphadenopathy. LUNGS: Bilateral rhonchi present, rales present. HEART: S1, S2, regular. A systolic murmur present. ABDOMEN: Soft, bowel sounds present. NEUROLOGIC: No focal neurological deficit. ADMITTING IMPRESSION AND DIAGNOSES 1. Atypical chest pain. 2. Gastritis. 3. Gastroesophageal reflux disease. 4. Failure to thrive. 5. Chronic obstructive pulmonary disease exacerbation. 6. History of congestive heart failure. 7. Cardiomyopathy. PLAN: The patient is admitted with the above diagnosis. Will give her nebulizer treatments, IV Lasix and Zofran for nausea and vomiting and Carafate and Pepcid and IV Protonix. Will obtain GI consult with Dr. Choe. Will do serial EKG, cardiac enzymes and observe the patient. Will obtain chest x-ray. The patient will be admitted under observation. Will do serial EKG, cardiac enzymes, rule out PR and stabilize the patient. Further workup as per the clinical course. Job#: [id number]
--- NOTE | 2018-03-04 11:56 | Diagnostic Imaging Report ---
PROCEDURE: Frontal and lateral views of the chest. COMPARISON: [facility], , CHEST 2 VIEWS, 10/07/2017, 10:43. INDICATIONS: CHEST PAIN FINDINGS: See impression. IMPRESSION: 1. unchanged single lead left upper chest cardiac device. 2. Enlarged cardiac silhouette, central pulmonary venous congestion and bilateral interstitial opacities extending from the sultana, consistent with interstitial edema. Partial obscuration of the left hemidiaphragm and left posterior costophrenic sulcus, consistent with small effusion likely associated atelectasis. Findings likely represent decompensated CHF. 3. No acute bony abnormalities. Generalized osteopenia. Logan Sarabia M.D. Dictated by: Logan Sarabia M.D. on 03/04/2018 at 11:58 Electronically approved by: Logan Sarabia M.D. on 03/04/2018 at 11:58
--- NOTE | 2018-03-04 11:58 | Diagnostic Imaging Report ---
PROCEDURE:US GALLBLADDER COMPARISON:[facility], CT, CT ABDOMEN/PELVIS W, 10/05/2017, 21:09. INDICATIONS:ABD PAIN TECHNIQUE: Inman-scale and color doppler transverse and longitudinal images of the right upper quadrant of the abdomen were obtained. FINDINGS: Liver: 10.7 cm in right mid-clavicular line. Increased echogenicity. No masses. Main portal vein: 0.6 cm, hepatopetal flow Gallbladder: No stones, sludge, wall thickening, or pericholecystic fluid. Common Bile Duct: 0.2 cm Sonographic Kumar's sign: Negative Right kidney: 9.3 cm. Normal echogenicity. No solid masses or hydronephrosis. Pancreas: The visualized portions are unremarkable. Inferior vena cava: Patent Aorta: Within normal limits Ascites: None in the right upper quadrant of the abdomen. CONCLUSION: 1. Essentially unremarkable right upper quadrant ultrasound. 2. No sonographic evidence of cholelithiasis or cholecystitis. Logan Sarabia M.D. Dictated by: Logan Sarabia M.D. on 03/04/2018 at 12:00 Electronically approved by: Logan Sarabia M.D. on 03/04/2018 at 12:00
[2018-03-04 11:59] VITALS: BP 166/72
[2018-03-04] MEDS ORDERED: KETAMINE HCL INJ 50 MG/ML 10 ML VIAL ONE (15:09)
[2018-03-04] MEDS: LABETALOL HCL 5 MG/ML 20ML VIAL IV PRN (16:06)
[2018-03-04] MEDS ORDERED: PROPOFOL IV EMULSION 10 MG/ML 20 ML VIAL ONE (17:33)
[2018-03-04] MEDS ORDERED: LIDOCAINE HCL 2% LOCAL INJ 5 ML SDV VIAL INJ ONE (17:33)
[2018-03-04] MEDS ORDERED: SINCALIDE 3 MCG/VIAL INJ ONE (17:53)
[2018-03-04] MEDS: PANTOPRAZOLE 40 MG 10ML VIAL IV SCH (18:09)
[2018-03-04 20:00] VITALS: BP 173/78
--- NOTE | 2018-03-04 21:11 | Operative Report ---
DATE OF PROCEDURE: March 04, 2018 PROCEDURE PERFORMED: Esophagogastroduodenoscopy with biopsies. REFERRING PHYSICIAN: Dr. Mejia Marshall INDICATIONS FOR EGD: Upper abdominal pain, history of heartburn, indigestion. MEDICATION: Patient was done under MAC. Please see anesthesiologist note. PROCEDURE IN DETAIL: With the patient in left lateral decubitus position, flexible fiberoptic Olympus gastroscope was introduced into the esophagus under direct visualization without any difficulty. There was some patchy erythema noted in distal esophagus. The scope was then advanced with ease into her stomach traversing a small sliding hiatal hernia. Mucosa overlying the antrum and the body revealed some patchy areas of erythema. An umbilicated lesion was noted in the antrum, suspicious for leiomyoma, and biopsies were obtained. The pylorus was of normal contour and shape. It was intubated with ease and the scope was advanced all the way to the second portion of the duodenum. The scope was then withdrawn slowly. Mucosa overlying the proximal second portion and the duodenal bulb appeared to be normal limits. The scope was then withdrawn back into the stomach and retroflexed. The mucosa overlying the fundus and the cardia appeared to be within normal limits. The scope was then straightened out. The stomach was decompressed. The scope was subsequently withdrawn. Patient tolerated procedure well. IMPRESSION: 1. Distal esophagitis, mild. 2. Small siding hiatal hernia. 3. Gastritis, mild. 4. Rule out leiomyoma, antrum, biopsies obtained. PLAN: Follow up histology. Increase Protonix to 40 mg 1 p.o. a.c. b.i.d. Findings do not necessarily explain patient's upper abdominal pain. She had an ulcer on the gallbladder that was within normal limits. Will proceed with a HIDA scan with ejection fraction in a.m. Job#: [id number] cc:YOLA MARSHALL MD
[2018-03-05] VITALS (8 sets, daily range): BP systolic 142–178; BP diastolic 63–97
[2018-03-05] MEDS: SODIUM CHLORIDE 0.9% 1000ML 1,000 ML IV SCH (00:26)
[2018-03-05] MEDS: LABETALOL HCL 5 MG/ML 20ML VIAL IV PRN (04:30)
[2018-03-05] MEDS: PANTOPRAZOLE 40 MG 10ML VIAL IV SCH ×2 (05:43→17:42)
[2018-03-05] MEDS: SUCRALFATE 1 GM TAB PO SCH ×2 (07:30→17:42)
[2018-03-05] MEDS: INSULIN LISPRO 100 UNIT/1 ML 3ML VIAL SQ SCH ×4 (07:30→21:00)
[2018-03-05] MEDS: FAMOTIDINE 20 MG/2 ML VIAL IV SCH ×2 (09:00→17:42)
[2018-03-05] MEDS: CLOPIDOGREL BISULFATE 75 MG TAB PO SCH (11:46)
[2018-03-05] MEDS: FOLIC ACID 1 MG TAB PO SCH (11:46)
[2018-03-05] MEDS: PREGABALIN 50 MG CAP PO SCH ×2 (11:46→17:42)
--- NOTE | 2018-03-05 12:12 | Diagnostic Imaging Report ---
Hepatobiliary Scan with Gallbladder Ejection Fraction Clinical information: 87 F with abdominal pain x 2 weeks Technique: Following intravenous administration of 6 millicuries of Tc-99m mebrofenin, dynamic images of the abdomen in the anterior projection were obtained through 60 minutes. Sincalide (CCK analog) 1.5 micrograms was administered intravenously over 30 minutes with additional imaging for determination of gallbladder ejection fraction. Discussion: Perfusion of the liver is normal. Extraction of tracer by the liver parenchyma is mildly prolonged. Tracer appears promptly within the biliary tract. The gallbladder begins to fill by 25 minutes post injection of tracer and fills adequately. Tracer is seen in the small bowel by 35 minutes. The gallbladder ejection fraction with sincalide is 30% (normal greater than 40%). Impression: 1. Filling of the gallbladder excludes acute cystic duct obstruction/acute cholecystitis. 2. 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 3. Scan evidence of mild hepatocyte dysfunction. Signed by: Dr. Sonam Zhou M.D. on 03/05/2018 12:08 PM
[2018-03-05] MEDS: CARVEDILOL 3.125 MG TAB PO SCH ×2 (12:19→17:42)
[2018-03-05] MEDS: LOSARTAN POTASSIUM 25 MG TAB PO SCH (12:20)
[2018-03-05] MEDS: ALBUTEROL SULF 0.083% NEB SOLN 3 ML NEB NEB PRN ×2 (14:10→19:40)
[2018-03-06] VITALS: BP 148/70
[2018-03-06] MEDS: SODIUM CHLORIDE 0.9% 1000ML 1,000 ML IV SCH (02:29)
[2018-03-06 04:00] VITALS: BP 150/71
[2018-03-06] MEDS: PANTOPRAZOLE 40 MG 10ML VIAL IV SCH (05:52)
[2018-03-06] MEDS: INSULIN LISPRO 100 UNIT/1 ML 3ML VIAL SQ SCH ×2 (07:30→11:30)
[2018-03-06 07:58] VITALS: BP 161/84
[2018-03-06 08:00] VITALS: BP 161/84
[2018-03-06] MEDS: CARVEDILOL 3.125 MG TAB PO SCH (08:27)
[2018-03-06] MEDS: FAMOTIDINE 20 MG/2 ML VIAL IV SCH (08:27)
[2018-03-06] MEDS: SUCRALFATE 1 GM TAB PO SCH (08:27)
[2018-03-06] MEDS: FOLIC ACID 1 MG TAB PO SCH (08:28)
[2018-03-06] MEDS: CLOPIDOGREL BISULFATE 75 MG TAB PO SCH (08:28)
[2018-03-06] MEDS: LOSARTAN POTASSIUM 25 MG TAB PO SCH (08:28)
[2018-03-06] MEDS: PREGABALIN 50 MG CAP PO SCH (08:28)
[2018-03-06 12:05] VITALS: BP 153/80
[2018-03-06] MEDS: ONDANSETRON HCL 4 MG ORAL DISINTEGRATING TAB PO PRN (14:21)
[2018-03-06] MEDS: ALBUTEROL SULF 0.083% NEB SOLN 3 ML NEB NEB PRN (15:47)
--- NOTE | 2018-03-06 16:05 | Discharge Summary ---
She is an 87-year-old female patient of mine who presented with the complaint of abdominal pain, chest pain, epigastric pain. ADMITTING IMPRESSION/DIAGNOSES 1. Atypical chest pain. 2. Gastritis. 3. Esophagitis. 4. Gastroesophageal reflux disease. 5. Failure to thrive. 6. Poor nutrition. 7. Chronic obstructive pulmonary disease with exacerbation. 8. Congestive heart failure. 9. Cardiomyopathy. HOSPITAL COURSE SUMMARY: The patient was admitted with the above diagnoses. The patient was dehydrated. IV fluids were given. The patient had serial cardiac enzymes done, which was negative for any acute ischemic infarct. The patient had an EGD done by Dr. Choe. Found gastritis and esophagitis. The patient was given a diet, which was regular and advanced. Her sister had some issues with her diet, but was tolerating. HIDA scan was ordered, and found 30% . No gallbladder surgery was advised. Now, the patient will be discharged home on Protonix 40 mg twice a day. Advised to hold off on the iron tablets, which was causing the patient's problems. The patient will be discharged home and followed up as an outpatient. YOLA MARSHALL MD Job#: [id number] [place]
[2018-03-06 16:48] VITALS: BP 160/84
== END 2018-03-06 16:33 | disposition home or self-care (01) ==
LOC: ER 11:52 → ERHOLD 14:32 → MED/SURG 15:27
PROVIDERS: ADMIT Internal Medicine; ATTEND Internal Medicine
DX: K21.0 Gastro-esophageal reflux disease with esophagitis (principal); I10 Essential (primary) hypertension; R07.89 Other chest pain; K29.70 Gastritis, unspecified, without bleeding; R62.7 Adult failure to thrive; J44.1 Chronic obstructive pulmonary disease with (acute) exacerbation; I50.9 Heart failure, unspecified; Z88.6 Allergy status to analgesic agent; Z88.0 Allergy status to penicillin; Z88.8 Allergy status to other drugs, medicaments and biological substances; K44.9 Diaphragmatic hernia without obstruction or gangrene; K31.9 Disease of stomach and duodenum, unspecified; Z95.810 Presence of automatic (implantable) cardiac defibrillator; E11.9 Type 2 diabetes mellitus without complications; I25.10 Atherosclerotic heart disease of native coronary artery without angina pectoris; Z95.5 Presence of coronary angioplasty implant and graft; Z87.891 Personal history of nicotine dependence; I25.5 Ischemic cardiomyopathy; E86.0 Dehydration
CPT/HCPCS: 36415 ×4; 43239; 71046; 74022; 76705; 78227; 80053 ×2; 82550 ×2; 82553 ×2; 82948 ×4; 83690; 84484 ×2; 85025 ×2; 88305; 88312; 93005; 94640 ×4; 96361; 99284; A9537; G0378 ×4; J1940; J2001; J2805; J3490 ×2; J7030 ×3; J7799

== ENCOUNTER 2018-05-10 11:55 | Emergency (ER) | payer MEDICARE, OTHER ==
[~2018-05-10] VITALS: Ht 160 cm; Wt 56.7 kg
[~2018-05-10 11:55] MED LIST changes: +LOSARTAN POTASS25 MG PO; +PRESERVISION A1 EACH PO
[2018-05-10] MEDS ORDERED: FAMOTIDINE 20 MG/2 ML VIAL IV STA (12:36)
[2018-05-10] MEDS ORDERED: SODIUM CHLORIDE 0.9% 1000ML 1,000 ML IV ONE (12:45)
[2018-05-10] MEDS ORDERED: MAGNESIUM/ALUMINUM/SIMETHICONE 30 ML UDC PO ONE (12:45)
[2018-05-10 13:06] LABS: EOSINOPHILS % 1.8 % (0.0-6.0); HEMATOCRIT 32.6 % (34.2-44.1); HEMOGLOBIN 10.7 g/dL (12.0-16.0); LYMPHOCYTES % 46.1 % (18.0-39.1); MEAN CORPUSCULAR HGB CONC 32.8 g/dL (31-35); MEAN CORPUSCULAR VOLUME 73.3 fL (81-99); MONOCYTES # (AUTO) 0.2 (0.2-0.8); MONOCYTES % 8.7 % (4.4-11.3); NEUTROPHILS % 43.4 % (38.7-80.0); PLATELET COUNT 152 x10e3/uL (140-360); RED BLOOD COUNT 4.45 x10e6/uL (3.6-5.1); RED CELL DISTRIBUTION WIDTH 16.5 % (11.7-14.4)
[2018-05-10 13:17] LABS: ALANINE AMINOTRANSFERASE 14 IU/L (0-55); ALBUMIN 3.5 g/dL (3.5-5.0); ALKALINE PHOSPHATASE 68 IU/L (40-150); ANION GAP 10.7 mmol/L (8-16); BLOOD UREA NITROGEN 9 mg/dL (7-26); BUN/CREATININE RATIO 10 (6-25); CALCIUM 9.2 mg/dL (8.4-10.2); CARBON DIOXIDE 27 mmol/L (22-29); CHLORIDE 108 mmol/L (98-107); CREATININE, SERUM 0.93 mg/dL (0.57-1.11); EST GLOMERULAR FILTRATION RATE > 60 ML/MIN (60-); GLUCOSE 94 mg/dL (74-118); LIPASE 25 U/L (8-78); POTASSIUM 3.7 mmol/L (3.5-5.1); SODIUM 142 mmol/L (136-145)
--- NOTE | 2018-05-10 13:30 | Diagnostic Imaging Report ---
PROCEDURE:X-RAY ABDOMEN - KUB COMPARISON:[facility], DX, ABDOMEN ACUTE SERIES W/PA CXR, 03/03/2018, 12:13. INDICATIONS:EPIGASTRIC PAIN FINDINGS: Nonobstructive bowel gas pattern with moderate to large amount of retained stool. No abnormal calcifications project over the genitourinary system. Stable ill-defined calcification projecting inferior to the left SI joint, which is likely vascular. No acute bony abnormalities. Degenerative changes in the lower lumbosacral spine, bilateral sacroiliac and hip joints. Generalized osteopenia. CONCLUSION: Nonobstructive bowel gas pattern, with moderate to large amount of retained stool suggesting constipation. Logan Sarabia M.D. Dictated by: Logan Sarabia M.D. on 05/10/2018 at 13:35 Electronically approved by: Logan Sarabia M.D. on 05/10/2018 at 13:35
[2018-05-10] MEDS ORDERED: LACTULOSE SYRUP 20 GM/30 ML UDC PO ONE (14:00)
[2018-05-10] MEDS ORDERED: DOCUSATE SODIUM LIQD 100 MG/10 ML UDC NG ONE (14:00)
[2018-05-10] MEDS ORDERED: ENALAPRILAT IV INJ 1.25 MG/ML VIAL IV STA (14:55)
[2018-05-10 15:25] LABS: EOSINOPHILS % (MANUAL) 3 % (0-7); LYMPHOCYTES % (MANUAL) 47 % (19-48); MONOCYTES % (MANUAL) 9 % (3.4-9.0); NEUTROPHILS % (MANUAL) 41 % (40-74)
[2018-05-10 15:26] LABS: HYPOCHROMASIA MODERATE; OVALOCYTES MANY
[2018-05-10 15:27] LABS: PLATELET ESTIMATE ADEQUATE; PLATELET MORPHOLOGY COMMENT FEW LARGE; RBC MORPHOLOGY COMMENT ABNORMAL
[2018-05-10] MEDS ORDERED: FUROSEMIDE20 MG PO (15:33)
[2018-05-10] MEDS ORDERED: PANTOPRAZOLE SO20 MG PO (15:33)
[2018-05-10] MEDS ORDERED: ATORVASTATIN CA20 MG PO (15:33)
[2018-05-10] MEDS ORDERED: CYPROHEPTADINE PO (15:33)
[2018-05-10] MEDS ORDERED: POTASSIUM CHLO10 ME1 PO (15:33)
[2018-05-10 16:53] VITALS: BP 163/94
== END 2018-05-10 17:19 | disposition home or self-care (01) ==
LOC: ER 11:55
DX: R10.13 Epigastric pain (principal); K29.50 Unspecified chronic gastritis without bleeding; K21.9 Gastro-esophageal reflux disease without esophagitis; K59.00 Constipation, unspecified
CPT/HCPCS: 36415; 74018; 80053; 83690; 84484; 85025; 93005; 99283; J7030

== ENCOUNTER 2020-02-06 12:18 | Inpatient (IN) | payer MEDICARE, OTHER ==
[2020-02-06] VITALS (7 sets, daily range): BP systolic 154–160; BP diastolic 90–102
[~2020-02-06] VITALS: Ht 160 cm; Wt 56.7 kg
[~2020-02-06 12:18] MED LIST changes: +ATORVASTATIN CA20 MG PO; +CYPROHEPTADINE PO; +FUROSEMIDE20 MG PO; +PANTOPRAZOLE SO20 MG PO; +POTASSIUM CHLO10 ME1 PO
[2020-02-06] MEDS ORDERED: LISINOPRIL2.5 MG PO (12:27)
[2020-02-06 12:50] LABS: BASOPHILS % 0.5 % (0.0-1.0); EOSINOPHILS % 1.1 % (0.0-6.0); HEMATOCRIT 35.3 % (34.2-44.1); HEMOGLOBIN 11.5 g/dL (12.0-16.0); LYMPHOCYTES # (AUTO) 1.3 (1.0-3.2); LYMPHOCYTES % 35.5 % (18.0-39.1); MEAN CORPUSCULAR HEMOGLOBIN 24.3 pg (28-32); MEAN CORPUSCULAR HGB CONC 32.6 g/dL (31-35); MEAN CORPUSCULAR VOLUME 74.6 fL (81-99); MONOCYTES # (AUTO) 0.4 (0.2-0.8); MONOCYTES % 10.1 % (4.4-11.3); NEUTROPHILS % 52.5 % (38.7-80.0); PLATELET COUNT 159 x10e3/uL (140-360); RED BLOOD COUNT 4.73 x10e6/uL (3.6-5.1); RED CELL DISTRIBUTION WIDTH 15.4 % (11.7-14.4)
[2020-02-06 13:08] LABS: INR 1.18; PARTIAL THROMBOPLASTIN TIME 23.9 seconds (23.8-35.5); PROTHROMBIN TIME 15.8 seconds (11.9-14.5)
--- NOTE | 2020-02-06 13:14 | Diagnostic Imaging Report ---
Exam: Head CT without contrast History: Dizziness, vertigo Comparison studies: None Technique: Axial images were obtained from the skull base to the vertex. Coronal and sagittal images reconstructed from the axial data. Dose modulation, iterative reconstruction, and/or weight based adjustment of the mA/kV was utilized to reduce the radiation dose to as low as reasonably achievable. Radiation dose: Total DLP: 921.4 mGy*cm. Estimated effective dose: DLP x 0.015 Intravenous contrast: None Findings: Scalp: No abnormalities. Bones: No fractures, blastic or lytic lesions. Brain sulci: Mildly prominent. Ventricles: Mild compensatory dilatation. No hydrocephalus. Extra-axial spaces: No masses, no fluid collection. Parenchyma: No abnormal densities. No mass, acute hemorrhage or acute cortical insult. Possible small chronic left cerebellar insult versus incidental prominent sulcus is seen on the coronal series 401, image 55. Sellar/suprasellar region: No abnormalities. Craniocervical junction: Patent foramen magnum. No Chiari one malformation. Included paranasal sinuses: Clear. Middle ear mastoid cavities: Clear. Incidental findings: Bilateral intraocular lens replacements. Atherosclerotic calcifications in the carotid siphons. IMPRESSION: 1. No acute intracranial abnormalities. 2. Mild generalized parenchymal volume loss. 3. 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 Signed by: Dr. Nicho Woo M.D. on 02/06/2020 1:10 PM
[2020-02-06 13:15] LABS: ALANINE AMINOTRANSFERASE 52 IU/L (0-55); ALBUMIN 3.5 g/dL (3.5-5.0); ALKALINE PHOSPHATASE 146 IU/L (40-150); ANION GAP 9.6 mmol/L (8-16); BLOOD UREA NITROGEN 12 mg/dL (7-26); BUN/CREATININE RATIO 12 (6-25); CALCIUM 8.9 mg/dL (8.4-10.2); CARBON DIOXIDE 25 mmol/L (22-29); CHLORIDE 111 mmol/L (98-107); CREATINE KINASE 123 IU/L (29-168); CREATININE, SERUM 1.01 mg/dL (0.57-1.11); EST GLOMERULAR FILTRATION RATE > 60 ML/MIN (60-); GLUCOSE 135 mg/dL (74-118); POTASSIUM 4.6 mmol/L (3.5-5.1); SODIUM 141 mmol/L (136-145)
--- NOTE | 2020-02-06 13:27 | Diagnostic Imaging Report ---
Chest, portable AP view History: Chest pain Comparison: No comparisons available for review IMPRESSION: The heart is mildly enlarged. Left subclavian AICD is in place. There is a patchy opacity at the right base which partially obscures the right heart border for which pneumonitis should be clinically excluded. There is no sizable pleural effusion. There is no pneumothorax. Signed by: Kevin Agosto MD on 02/06/2020 1:23 PM
[2020-02-06 13:34] LABS: THYROID STIMULATING HORMONE 1.153 uIU/mL (0.350-4.940)
[2020-02-06] MEDS ORDERED: ONDANSETRON HCL INJ 2MG/ML 2ML 2 MG/ML VIAL IV STA (13:44)
[2020-02-06] MEDS ORDERED: PANTOPRAZOLE 40 MG 10ML VIAL IV STA (13:44)
[2020-02-06] MEDS ORDERED: ONDANSETRON HCL INJ 2MG/ML 2ML 2 MG/ML VIAL IV PRN ×2 (14:30→21:00)
[2020-02-06] MEDS ORDERED: DEXTROSE 50% SYRINGE 50 ML IV PRN (14:30)
[2020-02-06 16:05] LABS: BILIRUBIN,URINE NEGATIVE (NEGATIVE); CLARITY,URINE SL CLOUDY (CLEAR); COLOR,URINE YELLOW (YELLOW); KETONES,URINE NEGATIVE (NEGATIVE); LEUKOCYTE ESTERASE ,URINE TRACE (NEGATIVE); NITRITE,URINE NEGATIVE (NEGATIVE); PROTEIN,URINE DIPSTICK NEGATIVE (NEGATIVE); URINE UROBILINOGEN 0.2 mg/dL (0.2 - 1)
[2020-02-06 16:13] LABS: BACTERIA,URINE MODERATE /HPF; WBC,URINE (MAN) 0-5 /HPF (0-5)
[2020-02-06 16:14] LABS: EPITHELIAL CELLS,URINE MANY /LPF; TRANSITIONAL EPI CELLS,URINE MODERATE
[2020-02-06] MEDS: INSULIN LISPRO 100 UNIT/1 ML 3ML VIAL SQ SCH ×2 (16:30→20:59)
[2020-02-06 19:10] LABS: CREATINE KINASE MB 1.6 ng/mL (0-5.0)
[2020-02-06] MEDS ORDERED: TRAMADOL HCL 50 MG TAB PO PRN (21:00)
[2020-02-06] MEDS ORDERED: HYDRALAZINE HCL 20 MG/ML VIAL IV PRN (21:00)
[2020-02-06] MEDS ORDERED: HYDROCODONE/APAP 5MG-325MG TAB PO PRN (21:00)
[2020-02-06] MEDS ORDERED: MECLIZINE HCL 12.5 MG TAB PO PRN (21:00)
[2020-02-06] MEDS: ATORVASTATIN 20 MG TAB PO SCH (21:15)
[2020-02-06] MEDS: FAMOTIDINE 20 MG/2 ML VIAL IV SCH (21:15)
[2020-02-06] MEDS ORDERED: SCOPOLAMINE 1.5 MG PATCH TOP ONE (21:30)
--- NOTE | 2020-02-06 22:18 | History and Physical ---
CHIEF COMPLAINT: Dizziness and palpitations. HISTORY OF PRESENT ILLNESS: This is an 89-year-old female with known history of heart failure with an AICD, CAD on anti-platelet therapy, hypertension, hyperlipidemia, history of chronic dizziness on meclizine, who presents to the ED with complaints of palpitations and dizziness that began since yesterday. The patient reports that she was working on her garden and picking up some leaves when suddenly she noticed she had some palpitations. She denies any firing of her AICD. She reports she went back to her home, went back to sleep and she was doing fine. This morning, she woke up and noticed she had some palpitations with some underlying dizziness. She denies experiencing this in the past. She denies any chest pain, nausea, vomiting, or any other complaints. She reports her dizziness was episodic and now is gone. The patient was seen and evaluated at bedside on the medical floor. She is currently doing well with no other issues at this time. Cardiology has been consulted. REVIEW OF SYSTEMS: Pertinent positives: Dizziness and palpitations. The rest of 14-point review of systems have been reviewed with the patient and are negative. ALLERGIES: PENICILLIN, ASPIRIN, AND REGLAN. HOME MEDICATIONS: Furosemide, lisinopril, potassium, tramadol, multivitamin, atorvastatin, Coreg, Plavix, folic acid, losartan, Protonix, Lyrica, and Carafate. PAST MEDICAL HISTORY: Hypertension, history of CAD with stents, hyperlipidemia, and acid reflux. PAST SURGICAL HISTORY: She has an AICD, prior history of left heart catheterization with stents. FAMILY HISTORY: Hypertension and diabetes. SOCIAL HISTORY: No drugs. No alcohol. Does not smoke. She lives with her daughter. PHYSICAL EXAMINATION: VITAL SIGNS: Temperature is 97.9, pulse 84, respiratory rate 16, blood pressure 156/102, and pulse ox 99% on room air. GENERAL: Not in acute distress. Alert and oriented x3. Cooperative on examination. HEENT: Head; normocephalic, atraumatic. Eyes; pupils are equal, round, and reactive to light bilaterally. Extraocular movements intact bilaterally. Throat; no evidence of erythema or exudates in the posterior pharynx. Has poor dentition. NECK: Supple. Good range of motion. PULMONARY: Clear to auscultation bilaterally. No wheezing, no rales, no rhonchi, no crackles appreciated. CARDIOVASCULAR: Positive S1 and S2. No murmurs, rubs, or gallops appreciated. ABDOMEN: Soft, nondistended, and nontender to palpation. Bowel sounds present. MUSCULOSKELETAL: Strength is 5/5 throughout. No evidence of any muscle deficits on examination. No weakness appreciated. NEUROLOGIC: Cranial nerves 2 through 12 grossly intact. No evidence of any neurological deficits on exam. SKIN: Intact. Warm to touch. Good cap refill. PSYCHIATRIC: Normal affect and mood. EXTREMITIES: No edema. Good range of motion throughout. LABORATORY FINDINGS: Show white count 3.7, hemoglobin 11.5, hematocrit is 35, MCV 74.6, and platelets of 159. Coagulation; PT 15, INR 1.1, and PTT 23.9. Chemistry; sodium 141, potassium 4.6, chloride 111, bicarb 25, anion gap of 9, BUN is 12, creatinine is 1, glucose 135, calcium 8.9, and magnesium 2. Total bilirubin 1.4, AST 78, ALT 52, and alkaline phosphatase 146. CK 123, troponin 0.263 and then 0.217. Total protein 7 and albumin 3.5. TSH is 1.153. Urinalysis shows trace leukocyte esterase, moderate transitional epithelial cells. Urine bacteria was moderate. MICROBIOLOGY: Urine cultures are pending. IMAGING STUDIES: Chest x-ray shows some patchy opacity in the right base with partially obscured to the right heart border concerning for underlying pneumonitis cannot be excluded. The patient is asymptomatic. She has no complaints. There is no evidence of any pleural effusion. CT brain shows no acute intracranial abnormalities. Mild generalized parenchymal volume loss. 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 IMPRESSION: 1. Lightheadedness and dizziness. 2. History of congestive heart failure with an AICD with questionable palpitations. 3. Hypertension. PLAN: At this time, we added some meclizine p.r.n. and scopolamine patch for her dizziness. CT brain was found to be negative. Unable to perform MRI of the brain due to AICD. She reports feeling much better now. She did have some palpitations, which could be the cause of her underlying dizziness. Cardiology was consulted for AICD interrogation. She denies any chest pain. Resume same cardioprotective medications. Resume antihypertensive medications. Monitor blood pressure very closely. I did get PT/OT evaluation to evaluate her while she is ambulating. Put her on Lovenox for DVT prophylaxis. She is also on insulin sliding scale as well. Otherwise, we will continue to monitor very closely. Consultants involved Cardiology. MD JEAN Lal/RENATO /[id number]
[2020-02-07] VITALS (8 sets, daily range): BP systolic 135–160; BP diastolic 76–99
[2020-02-07 00:30] LABS: CREATINE KINASE MB 1.5 ng/mL (0-5.0)
[2020-02-07 05:54] LABS: BASOPHILS % 0.5 % (0.0-1.0); EOSINOPHILS % 0.8 % (0.0-6.0); HEMATOCRIT 32.4 % (34.2-44.1); HEMOGLOBIN 10.7 g/dL (12.0-16.0); LYMPHOCYTES % 50.6 % (18.0-39.1); MEAN CORPUSCULAR HEMOGLOBIN 24.1 pg (28-32); MONOCYTES # (AUTO) 0.5 (0.2-0.8); MONOCYTES % 11.5 % (4.4-11.3); NEUTROPHILS # (AUTO) 1.5 (2.1-6.9); NEUTROPHILS % 36.3 % (38.7-80.0); PLATELET COUNT 153 x10e3/uL (140-360); RED BLOOD COUNT 4.44 x10e6/uL (3.6-5.1); RED CELL DISTRIBUTION WIDTH 15.5 % (11.7-14.4)
[2020-02-07 06:21] LABS: CREATINE KINASE MB 2.2 ng/mL (0-5.0)
[2020-02-07 06:48] LABS: ALBUMIN 3.1 g/dL (3.5-5.0); ALBUMIN/GLOBULIN RATIO 0.9 (0.8-2.0); ANION GAP 11.6 mmol/L (8-16); CALCIUM 8.9 mg/dL (8.4-10.2); CHOL/HDL RATIO 3.7 (3.0-3.6); CREATININE, SERUM 1.05 mg/dL (0.57-1.11); POTASSIUM 4.6 mmol/L (3.5-5.1)
[2020-02-07] MEDS: INSULIN LISPRO 100 UNIT/1 ML 3ML VIAL SQ SCH ×4 (07:30→21:00)
[2020-02-07] MEDS: PANTOPRAZOLE SOD 40 MG TABEC PO SCH (07:34)
[2020-02-07] MEDS: SUCRALFATE 1 GM TAB PO SCH ×2 (07:34→16:07)
[2020-02-07] MEDS ORDERED: NON-FORMULARY MEDICATION (Pantoprazole Sodium 40 MG) PO SCH (09:00)
[2020-02-07] MEDS: FAMOTIDINE 20 MG/2 ML VIAL IV SCH ×2 (09:11→20:26)
[2020-02-07] MEDS: CARVEDILOL 3.125 MG TAB PO SCH ×2 (09:11→16:07)
[2020-02-07] MEDS: LOSARTAN POTASSIUM 25 MG TAB PO SCH (09:11)
[2020-02-07] MEDS: CLOPIDOGREL BISULFATE 75 MG TAB PO SCH (09:11)
[2020-02-07] MEDS: PREGABALIN 50 MG CAP PO SCH ×2 (09:11→16:07)
[2020-02-07] MEDS: FOLIC ACID 1 MG TAB PO SCH (09:11)
--- NOTE | 2020-02-07 10:19 | Consultation ---
DATE OF CONSULTATION: Cardiology Consult HISTORY OF PRESENT ILLNESS: Shelly Mullins is an 89-year-old female with primary history of hypertension, CAD with previous stents, CHF with AICD, hyperlipidemia, and COPD, admitted complaining of palpitations associated with dizziness, shortness of breath, and extreme weakness that started 24 hours prior to admission. Onset of symptoms while she was cleaning the yard, however, has worsened overnight. The patient denies any chest pain, nausea, or any vomiting. The patient did endorse her dizziness was episodic from the night of Wednesday until few hours prior to admission. PAST MEDICAL HISTORY: Hypertension, CAD with stents on Plavix, hyperlipidemia, CHF with AICD, GERD, COPD, hyperlipidemia, and diabetes. FAMILY HISTORY: Hypertension and diabetes. SOCIAL HISTORY: No drugs. No alcohol. Does not smoke. She lives with her daughter. PHYSICAL EXAMINATION: VITAL SIGNS: Currently 97.7, pulse is 69, blood pressure is 158/95, SpO2 of 98% on room air, and respiration is 18. GENERAL: The patient is well-developed and well-nourished and in no acute respiratory distress. Alert and oriented x3. Cooperative on examination. HEENT: Head is normocephalic and atraumatic. Eyes, pupils are equally round and reactive to light and accommodation. Extraocular movements intact bilaterally. Throat, no evidence of erythema or exudates in the posterior pharynx. She does have poor dentition. NECK: Supple. Full range of motion. CARDIOVASCULAR: S1 and S2 audible. Regular rate and rhythm. No murmurs heard. No rubs or gallops appreciated. PULMONARY: Clear to auscultation bilaterally. There was no wheezing, no rales, no rhonchi or crackles appreciated on exam. ABDOMEN: Soft, nondistended, and nontender to palpation. Bowel sounds are present. MUSCULOSKELETAL: Strength is 5/5 throughout. No evidence of any muscle deficits on examination. No focal weakness. NEUROLOGIC: Motor and sensory examination of the upper and lower extremities are normal. Reflexes are normal and symmetrical bilaterally. IMPRESSION AND PLAN: The patient is an 89-year-old admitted concerning for [id number] congestive heart failure. The patient's troponin is moderately elevated, however, without chest pain. BNP is elevated 2000 plus. EKG is normal sinus rhythm with first-degree AV block with nonspecific ST-T changes to inferolateral leads. CT of brain is negative for any acute abnormality. She is currently doing well and denies any chest pain at this time. 1. We will interrogate her AICD. 2. Obtain a repeat echocardiogram. 3. Monitor on telemetry. 4. Control the patient's blood pressure, slightly elevated on admission and continue with home cardiac medications and give p.r.n. hydralazine as needed. 5. Congestive heart failure education. Cardiac diet. Monitor intake and output, and replace electrolytes as needed. Daily weights. Further recommendation will follow according to the patient's clinical course. Dictated by Lexis Duenas NP MD DAVID López/RENATO /[id number]
[2020-02-07] MEDS ORDERED: ONDANSETRON HCL 4 MG ORAL DISINTEGRATING TAB PO PRN (11:45)
[2020-02-07] MEDS: ATORVASTATIN 20 MG TAB PO SCH (20:26)
[2020-02-08 00:15] VITALS: BP_SYST 125; BP_SYST 172; BP_DIAS 63; BP_DIAS 74
--- NOTE | 2020-02-08 00:43 | Progress Note ---
DATE: 02/07/2020 Medicine Progress Note SUBJECTIVE: The patient reportedly is doing well today with no complaints. There was a 2D echo performed today. The patient is doing well. No lightheadedness or dizziness. The 2D echo is pending. PHYSICAL EXAMINATION: VITAL SIGNS: Temperature 97.3, pulse 69, respiratory rate 20, blood pressure 145/77, and pulse ox 95% on room air. GENERAL: Not in acute distress. Alert and oriented x3. HEENT: Head; normocephalic, atraumatic. Eyes; pupils are equal, round, and reactive to light bilaterally. Extraocular movements intact bilaterally. Throat; no evidence of erythema or exudates in the posterior pharynx. Has poor dentition. NECK: Supple. Good range of motion. PULMONARY: Clear to auscultation bilaterally. No wheezing, no rales, no rhonchi, no crackles appreciated. CARDIOVASCULAR: Positive S1 and S2. No murmurs, rubs, or gallops appreciated. ABDOMEN: Soft, nondistended, and nontender to palpation. Bowel sounds present. MUSCULOSKELETAL: Strength is 5/5 throughout. No evidence of any muscle deficits on examination. No weakness appreciated. NEUROLOGIC: Cranial nerve II through XII grossly intact. No evidence of any neurological deficits on exam. SKIN: Intact. Warm to touch. Good cap refill. PSYCHIATRIC: Normal affect and mood. EXTREMITIES: No edema. Good range of motion throughout. LABORATORY FINDINGS: Show white count 3.9, hemoglobin 10.5, hematocrit 32, and platelets of 153. Chemistry reviewed, stable. MICROBIOLOGY: Urine cultures no growth. IMPRESSION: 1. Lightheadedness with dizziness-resolved. 2. History of congestive heart failure with automated implantable cardioverter-defibrillator and questionable palpitations. 3. Hypertension. PLAN: At this time, the patient's AICD was interrogated, found to be normal. A 2D echo was ordered by Cardiology. Await final results on that. I did not see there being any further workup by Cardiology except for one the 2D echo is ba1ck. Continue with scopolamine patch, meclizine p.r.n. Our plan is discharge home tomorrow and she is ambulating very well with PT. MD JEAN Lal/RENATO Arauz: 02/07/2020 22:05:59 /[id number]
[2020-02-08 04:00] VITALS: BP 132/65
[2020-02-08] MEDS: INSULIN LISPRO 100 UNIT/1 ML 3ML VIAL SQ SCH ×2 (07:30→11:30)
[2020-02-08 08:13] VITALS: BP 132/65
[2020-02-08] MEDS: SUCRALFATE 1 GM TAB PO SCH (08:23)
[2020-02-08] MEDS: FAMOTIDINE 20 MG/2 ML VIAL IV SCH (08:23)
[2020-02-08] MEDS: PANTOPRAZOLE SOD 40 MG TABEC PO SCH (08:23)
[2020-02-08 08:26] VITALS: BP 140/77
[2020-02-08] MEDS ORDERED: FUROSEMIDE 20 MG TAB PO SCH (09:00)
[2020-02-08] MEDS: CARVEDILOL 3.125 MG TAB PO SCH (09:35)
[2020-02-08] MEDS: FOLIC ACID 1 MG TAB PO SCH (09:36)
[2020-02-08] MEDS: PREGABALIN 50 MG CAP PO SCH (09:36)
[2020-02-08] MEDS: LOSARTAN POTASSIUM 25 MG TAB PO SCH (09:36)
[2020-02-08] MEDS: CLOPIDOGREL BISULFATE 75 MG TAB PO SCH (09:36)
[2020-02-08 11:40] VITALS: BP 128/71
--- NOTE | 2020-02-08 23:15 | Discharge Summary ---
FINAL DISCHARGE DIAGNOSES: 1. Lightheadedness, dizziness-resolved, likely secondary to dehydration. 2. History of congestive heart failure with systolic function with automated implantable cardioverter-defibrillator - defibrillator was interrogated, found to be normal. 3. Hypertension. CONSULTANTS: Cardiology. PHYSICAL EXAMINATION: VITAL SIGNS: Temperature is 96.5, pulse 84, respiratory rate is 18, blood pressure 128/71, and pulse ox 96% on room air. LABORATORY DATA: Show white count 3.9, hemoglobin 10.7, hematocrit is 32, platelets of 153, MCV was 73. Coagulation; PT 15, INR 1.1, PTT 23. Chemistry; sodium is 144, potassium 4.6, chloride 111, bicarb 26, anion gap is 11, BUN is 12, creatinine is 1, glucose 102. A1c 5.5, total bilirubin was 1.8, AST 54, ALT 45, alkaline phosphatase is 125. Troponins were slightly elevated. Of note, the last one was 0.224, but within normal range. Albumin 3.1. LDL is 100, HDL 41. TSH is 1.331. Urinalysis, urine leukocyte esterase was trace. Urine bacteria moderate. MICROBIOLOGY: Urine cultures, no growth. IMAGING STUDIES: Chest x-ray shows some patchy opacity, possible underlying pneumonitis. No evidence of effusion. No pneumothorax. CT brain, no acute intracranial abnormalities. 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 HOSPITAL COURSE: This is an 89-year-old female, who comes into the ED with complaints of underlying dizziness and lightheadedness. The patient reports that she was working out in the garden and noticed to have some lightheadedness, dizziness, and underlying palpitations, which she was admitted for further evaluation and management. Cardiology was consulted. Cardiac enzymes were negative. EKG showed no acute findings. Cardiac telemetry showed no alarms. A 2D echo shows an EF of approximately 25%. AICD was interrogated, found to be normal. The patient improved. She required IV fluids, likely be dehydration is her cause. CT brain was found to be negative. She was given meclizine p.r.n. as well as Omnipaque. Cannot perform MRI of the brain due to AICD. The patient had no neurological issues or symptoms. The patient was cleared for discharge by Cardiology. The patient's symptoms all resolved. She was back to normal baseline. On the day of discharge, vital signs were stable, labs were reviewed and stable. The patient is seen and evaluated, and examined thoroughly on the day of discharge. No other complaints. The patient verbalized understanding and agrees to plan of care to follow up accordingly as an outpatient with primary care physician in 1 week and reading teacher in 2 weeks' time. MEDICATIONS: See med reconciliation form. DISPOSITION: Home. CONDITION: Stable. DIET: Heart healthy. In the event of any worsening symptoms, the patient was advised to come back to the ED for further evaluation. Discharge summary took greater than 35 minutes. MD JEAN Lal/MODFatmata /[id number]
== END 2020-02-08 14:41 | disposition home or self-care (01) | DRG 293 ==
LOC: ER 12:18 → ERHOLD 14:23 → MED/SURG 15:47
PROVIDERS: ADMIT Internal Medicine; ATTEND Internal Medicine
DX: I11.0 Hypertensive heart disease with heart failure (principal); Z95.810 Presence of automatic (implantable) cardiac defibrillator; Z95.5 Presence of coronary angioplasty implant and graft; E78.5 Hyperlipidemia, unspecified; K21.9 Gastro-esophageal reflux disease without esophagitis; E11.9 Type 2 diabetes mellitus without complications; I44.0 Atrioventricular block, first degree; I50.23 Acute on chronic systolic (congestive) heart failure; J44.9 Chronic obstructive pulmonary disease, unspecified
CPT/HCPCS: 36415; 70450; 71045; 80053; 80061; 81001; 82550; 82553; 82948; 83036; 83735; 83880; 84443; 84484; 85025; 85610; 85730; 87086; 93005; 93306; 97139; 99284; J2405

== ENCOUNTER 2020-02-13 03:40 | Emergency (ER) | payer MEDICARE, OTHER ==
[~2020-02-13] VITALS: Ht 160 cm; Wt 56.7 kg
[~2020-02-13 03:40] MED LIST changes: +LISINOPRIL2.5 MG PO
[2020-02-13 04:42] LABS: HEMATOCRIT 33.5 % (34.2-44.1); HEMOGLOBIN 10.8 g/dL (12.0-16.0); MEAN CORPUSCULAR VOLUME 76.1 fL (81-99)
[2020-02-13 04:43] LABS: BASOPHILS % 0.5 % (0.0-1.0); EOSINOPHILS # (AUTO) 0.1 (0.0-0.4); EOSINOPHILS % 3.2 % (0.0-6.0); LYMPHOCYTES # (AUTO) 2.3 (1.0-3.2); LYMPHOCYTES % 56.7 % (18.0-39.1); MEAN CORPUSCULAR HEMOGLOBIN 24.5 pg (28-32); MEAN CORPUSCULAR HGB CONC 32.2 g/dL (31-35); MONOCYTES # (AUTO) 0.5 (0.2-0.8); MONOCYTES % 12.3 % (4.4-11.3); NEUTROPHILS # (AUTO) 1.1 (2.1-6.9); NEUTROPHILS % 27.1 % (38.7-80.0); PLATELET COUNT 200 x10e3/uL (140-360); RED CELL DISTRIBUTION WIDTH 17.4 % (11.7-14.4)
[2020-02-13] MEDS ORDERED: ONDANSETRON HCL INJ 2MG/ML 2ML 2 MG/ML VIAL IV STA (04:47)
[2020-02-13] MEDS ORDERED: PANTOPRAZOLE 40 MG 10ML VIAL IV STA (04:47)
[2020-02-13 04:49] LABS: ALANINE AMINOTRANSFERASE 57 IU/L (0-55); ALBUMIN 3.2 g/dL (3.5-5.0); ANION GAP 11.3 mmol/L (8-16); BLOOD UREA NITROGEN 10 mg/dL (7-26); BUN/CREATININE RATIO 10 (6-25); CALCIUM 8.8 mg/dL (8.4-10.2); CARBON DIOXIDE 25 mmol/L (22-29); CHLORIDE 110 mmol/L (98-107); CREATININE, SERUM 1.05 mg/dL (0.57-1.11); EST GLOMERULAR FILTRATION RATE 60 ML/MIN (60-); GLUCOSE 93 mg/dL (74-118); POTASSIUM 4.3 mmol/L (3.5-5.1); SODIUM 142 mmol/L (136-145)
[2020-02-13 04:50] LABS: ALBUMIN/GLOBULIN RATIO 0.9 (0.8-2.0); ALKALINE PHOSPHATASE 109 IU/L (40-150); AMYLASE 40 U/L (25-125); CREATINE KINASE 168 IU/L (29-168); LIPASE 30 U/L (8-78)
--- NOTE | 2020-02-13 04:55 | Diagnostic Imaging Report ---
EXAMINATION: CHEST SINGLE (PORTABLE) INDICATION: Epigastric pain COMPARISON: 02/06/2020 FINDINGS: AP view TUBES and LINES: Tubes and lines are unchanged. Left mechanical cardiac device. LUNGS: Unchanged ill-defined airspace opacity of the right lung base. Minimal opacity of the left lung base is also unchanged. PLEURA: No large pleural effusion. No pneumothorax. HEART AND MEDIASTINUM: Stable mild cardiomegaly. BONES AND SOFT TISSUES: No acute osseous lesion. Soft tissues are unremarkable. UPPER ABDOMEN: No free air under the diaphragm. IMPRESSION: 1. Unchanged bibasilar airspace opacities, right greater than left, which may reflect atelectasis. Pneumonia may appear similar. 2. Unchanged nonspecific cardiomegaly. Signed by: Efren Blevins MD on 02/13/2020 4:52 AM
[2020-02-13 05:30] LABS: BILIRUBIN,URINE NEGATIVE (NEGATIVE); CLARITY,URINE CLEAR (CLEAR); COLOR,URINE YELLOW (YELLOW); KETONES,URINE NEGATIVE (NEGATIVE); LEUKOCYTE ESTERASE ,URINE NEGATIVE (NEGATIVE); NITRITE,URINE NEGATIVE (NEGATIVE); PROTEIN,URINE DIPSTICK NEGATIVE (NEGATIVE); URINE UROBILINOGEN 0.2 mg/dL (0.2 - 1)
[2020-02-13 05:52] LABS: BACTERIA,URINE RARE /HPF; EPITHELIAL CELLS,URINE FEW /LPF; MUCUS,URINE FEW (RARE); RBC,URINE 0-5 /HPF (0-5); WBC,URINE (MAN) 0-5 /HPF (0-5)
[2020-02-13 05:53] LABS: RENAL EPITHELIAL CELLS,URINE FEW
[2020-02-13 05:58] VITALS: BP 161/97
--- NOTE | 2020-02-13 06:09 | NUR ---
MD TO ROOM TO DISCUSS LAB AND DIAGNOSTIC RESULTS. PT INFORMED BY MD THAT WILL BE DISCHARGED HOME AND NEEDS TO FOLLOW-UP WITH GI. PT STATES THAT THIS "PROBLEM HAS BEEN GOING ON FOR MONTHS, THERE IS NOTHING THAT YOU CAN DO?" PT INITIALLY STATED ON ARRIVAL THAT ONLY HAVING PROBLEM SINCE 2200 LASTNIGHT. MD RESTATED TO PATIENT THAT LAB AND DIAGNOSTICS DO NOT REQUIRE ADMISSION AND NEEDS TO FOLLOW-UP WITH GI OUTPATIENT. PT VERBALIZED UNDERSTANDING OF INSTRUCTION. PT TO CALL DAUGHTER FOR PICK-UP AT THIS TIME.
== END 2020-02-13 06:45 | disposition home or self-care (01) ==
LOC: ER 03:40
DX: R11.0 Nausea (principal); R10.13 Epigastric pain; K21.9 Gastro-esophageal reflux disease without esophagitis; I10 Essential (primary) hypertension; J44.9 Chronic obstructive pulmonary disease, unspecified; I25.10 Atherosclerotic heart disease of native coronary artery without angina pectoris; Z95.5 Presence of coronary angioplasty implant and graft
CPT/HCPCS: 36415; 71045; 80053; 81001; 82150; 82550; 82553; 83690; 84484; 85025; 93005; 99284